=== PATIENT | male | born 1965 | race Two or more races ===

== ENCOUNTER → 2020-05-25 | Outpatient (CLI) | payer SELFPAY | LOC: M LABSMTC 09:39 | PROVIDERS: ATTEND Pediatrics | DX: Z20.822 Contact with and (suspected) exposure to COVID-19 (principal) ==

== ENCOUNTER → 2020-07-08 | Outpatient (CLI) | payer SELFPAY | LOC: M LABSMTC 08:54 | PROVIDERS: ATTEND Pediatrics | DX: Z20.822 Contact with and (suspected) exposure to COVID-19 (principal) ==

== ENCOUNTER → 2020-07-24 | Outpatient (CLI) | payer SELFPAY | LOC: M LABSMTC 14:05 | PROVIDERS: ATTEND Pediatrics | DX: Z20.822 Contact with and (suspected) exposure to COVID-19 (principal) ==